=== PATIENT | male | born 1975 ===

== ENCOUNTER 2021-09-15 16:28 | Emergency (ER) | payer SELFPAY ==
[2021-09-15] MEDS: Lidocaine 1% 5 ML VIAL INJECT ONE (16:56)
[2021-09-15] MEDS: Diphtheria,Pertussis(Acell),Tetanus Vaccine 0.5 ML Syringe IM ONE (17:02)
== END 2021-09-15 17:19 | disposition home or self-care (01) ==
LOC: CC.ED 16:28
DX: S01.01XA Laceration without foreign body of scalp, initial encounter (principal); Z23 Encounter for immunization; Z88.5 Allergy status to narcotic agent; W20.8XXA Other cause of strike by thrown, projected or falling object, initial encounter
CPT/HCPCS: 12002; 90471; 90715; 99282-25; 99283